=== PATIENT | male | born 2005 | race Caucasian/White ===

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

== ENCOUNTER 2025-02-17 13:01 | Emergency (ER) | payer OTHER ==
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
--- NOTE | 2025-02-17 14:25 | XR ---
EXAMINATION TYPE: XR shoulder complete RT DATE OF EXAM: 02/17/2025 2:16 PM COMPARISON: None. CLINICAL INDICATION: Male, 19 years old with history of pain, pain TECHNIQUE: XR shoulder complete RT views were obtained FINDINGS: Minimally displaced minimally angulated fracture of the distal middle one third of the right clavicle . Glenohumeral joint and proximal right humerus are intact. The acromioclavicular and glenohumeral janelle int spaces appear within normal limits. The visualized ribs are intact and unremarkable. IMPRESSION: Minimally displaced minimally angulated fracture of the distal middle one third of the right clavicle . [facility], , 02/17/2025 2:23 PM
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
[2025-02-17 16:45] VITALS: RESP 20
[2025-02-17 17:31] VITALS: BP 130/68; PULSE 82; TEMP 98
== END 2025-02-17 17:31 | disposition home or self-care (01) ==
LOC: EC 13:01
DX: S42.031A Displaced fracture of lateral end of right clavicle, initial encounter for closed fracture (principal); S02.40CA Maxillary fracture, right side, initial encounter for closed fracture; V18.0XXA Pedal cycle driver injured in noncollision transport accident in nontraffic accident, initial encounter; Y93.55 Activity, bike riding
CPT/HCPCS: 70450; 70486; 72125; 99284